=== PATIENT | male | born 1945 | race Caucasian/White ===

== ENCOUNTER 2020-06-08 16:37 | Inpatient (IN) | payer MEDICARE, BC ==
--- NOTE | 2020-06-08 17:03 | ED ---
Chest Pain HPI - General Chief Complaint: Chest Pain Stated Complaint: Chest Pain Source: patient, family Mode of arrival: wheelchair Limitations: no limitations - History of Present Illness Initial Comments: Patient is a 74-year-old male past history of coronary artery disease, hyperlipidemia, hypertension who presents to the emergency room with reported exertional dyspnea and chest pain for the past 2 months. Patient reports a history of 2 stents in his heart. Last was placed in 2014. Has not had any cardiac follow-up since. Reports that he cannot walk across a room without getting short of breath. Last episode of chest pain was a week and a half ago. Denies any current chest pain. No fevers or chills. Denies cough. No nausea or vomiting. Denies abdominal pain. No numbness, tingling, weakness or paresthesias in extremities. Patient denies headaches or visual changes. No lower externally swelling. No history of DVT or PE. No alleviating, precipitating or modifying factors - Related Data Home Medications Medication Instructions Recorded Confirmed Aspirin EC [Ecotrin] 325 mg PO DAILY 06/08/20 06/08/20 Atorvastatin [Lipitor] 40 mg PO HS 06/08/20 06/08/20 Cholecalciferol (Vitamin D3) 125 mcg PO HS 06/08/20 06/08/20 [Vitamin D3] Finasteride [Proscar] 5 mg PO HS 06/08/20 06/08/20 Lisinopril-Hctz 10-12.5 mg 1 tab PO DAILY 06/08/20 06/08/20 [Zestoretic 10-12.5] Metoprolol Tartrate [Lopressor] 25 mg PO HS 06/08/20 06/08/20 Tamsulosin HCl [Flomax] 0.4 mg PO HS 06/08/20 06/08/20 metFORMIN HCL [Glucophage] 500 mg PO DAILY 06/08/20 06/08/20 Allergies Allergy/AdvReac Type Severity Reaction Status Date / Time latex Allergy Rash/Hives Verified 06/08/20 18:43 warfarin [From Coumadin] Allergy Nausea & Verified 06/08/20 18:43 Vomiting Review of Systems ROS Statement: Those systems with pertinent positive or pertinent negative responses have been documented in the HPI. ROS Other: All systems not noted in ROS Statement are negative. EKG Findings - EKG Comments: EKG Findings:: EKG demonstrates normal sinus rhythm with a ventricular rate of 93. GA interval 192. QRS 186. QTC of 557. There is a left bundle branch block present. Negative for sgarbossa criteria Past Medical History Past Medical History: Coronary Artery Disease (CAD), Chest Pain / Angina, GERD/Reflux, Hyperlipidemia, Hypertension, Myocardial Infarction (CA), Osteoarthritis (OA) Additional Past Medical History / Comment(s): 10/17/14 Pt admitted to floor s/p ccath and stenting of his distal RCA. Other HX: generalized arthiritis. Last Myocardial Infarction Date:: 2004 History of Any Multi-Drug Resistant Organisms: None Reported Past Surgical History: Heart Catheterization With Stent, Joint Replacement, Tonsillectomy Additional Past Surgical History / Comment(s): 10/17/14 CCath with stent to distal RCA. 2004 CCath with stent. Colonoscopy and EGD both normal. 1999 Hip replacement. Past Anesthesia/Blood Transfusion Reactions: No Reported Reaction Date of Last Stent Placement:: 2003 Past Psychological History: No Psychological Hx Reported Smoking Status: Former smoker Past Alcohol Use History: None Reported Past Drug Use History: None Reported - Past Family History Mother Family Medical History: Cancer Additional Family Medical History / Comment(s): Mother at age 66 or 67yrs of breast to bone cancer. Father Family Medical History: Cancer Additional Family Medical History / Comment(s): Father at age 95yrs. He had colon cancer. 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 Pulido - admit with heparin, ASA, NPO at mightnight Chest Pain [facility] Upon arrival patient was placed into room 7. A thorough history and physical exam was performed. Peripheral IV is established. To lead EKG is performed which demonstrated a new left bundle-branch block. This is a change in comparison to his previous. Laboratory studies are obtained which demonstrated d-dimer 1.97. Troponin of 0.332 and BNP of 349. Chest x-ray demonstrates no acute intrathoracic process. CT the patient's chest was performed because of his elevated d-dimer with reported exertional dyspnea. CT demonstrates no evidence of pulmonary embolism. Mild q changes and subsegmental atelectasis. Results are discussed with the patient. He is placed on heparin as he has no contraindication. Case is discussed with Dr. Pulido who recommended aspirin. Patient will be made nothing by mouth at midnight for possible cath in the morning. Patient and his daughter at bedside agreed to treatment plan. Patient is awaiting a bed on the Disposition Clinical Impression: Chest pain, NSTEMI (non-ST elevated myocardial infarction) Disposition: ADMITTED IP TO THIS [facility] Condition: Serious Is patient prescribed a controlled substance at d/c from ED?: No Decision to Admit Reason: Admit from EC Decision Date: 06/08/20 Decision Time: 19:30
[2020-06-08 17:16] LABS: Basophils # (A) 0.1 k/uL (0-0.2); Basophils % (A) 1 %; Eosinophils # (A) 0.2 k/uL (0-0.7); Eosinophils % (A) 3 %; HCT 45.4 % (39.0-53.0); HGB 15.8 gm/dL (13.0-17.5); Lymphocytes # (A) 1.5 k/uL (1.0-4.8); Lymphocytes % (A) 22 %; MCH 33.5 pg (25.0-35.0); MCHC 34.8 g/dL (31.0-37.0); MCV 96.1 fL (80.0-100.0); Monocytes # (A) 0.5 k/uL (0-1.0); Monocytes % (A) 8 %; Neutrophils # (A) 4.5 k/uL (1.3-7.7); Neutrophils % (A) 65 %; Platelet Count 195 k/uL (150-450); RBC 4.72 m/uL (4.30-5.90); RDW 12.8 % (11.5-15.5); WBC 6.9 k/uL (3.8-10.6)
[2020-06-08 17:25] LABS: Albumin 4.1 g/dL (3.5-5.0); Calcium 9.3 mg/dL (8.4-10.2); Magnesium 1.9 mg/dL (1.6-2.3); Total Bilirubin 1.5 mg/dL (0.2-1.3); Total Protein 7.6 g/dL (6.3-8.2)
--- NOTE | 2020-06-08 17:25 | XR ---
EXAMINATION TYPE: XR chest 2V DATE OF EXAM: 06/08/2020 COMPARISON: NONE HISTORY: Difficulty breathing TECHNIQUE: 3 views FINDINGS: There is no heart failure nor confluent pneumonic infiltrate. Costophrenic angles are clear . Thoracic aorta is atheromatous. Spurring in the thoracic spine. IMPRESSION: No active cardiopulmonary disease. Normal heart.
[2020-06-08 17:34] LABS: INR 1.1 (<1.2); Partial Thromboplastin Time 23.2 sec (22.0-30.0); Prothrombin Time 11.2 sec (9.0-12.0)
[2020-06-08 17:40] LABS: D-Dimer 1.97 mg/L FEU (<0.60)
--- NOTE | 2020-06-08 19:18 | CT ---
EXAMINATION TYPE: CT chest angio for PE DATE OF EXAM: 06/08/2020 COMPARISON: None HISTORY: Dyspnea. CT DLP: 744.3 mGycm Automated exposure control for dose reduction was used. CONTRAST: Performed with IV Contrast, patient injected with 80ml mL of Isovue 370. There is no mediastinal adenopathy. Thoracic aorta is atheromatous. There is no aneurysm or dissectio n. Heart size is fairly normal. There is no pericardial effusion. There is some mild interstitial density and subsegmental atelectasis at the lung bases. There is normal contrast opacification of the pulmonary arteries. There are no filling defects. The r ibs appear intact. Thoracic spine is intact. IMPRESSION: No evidence of pulmonary embolism. Mild fibrotic changes and subsegmental atelectasis at the lung bas es. No suspicious pulmonary mass. Atherosclerotic vascular disease.
[2020-06-08] MEDS ORDERED: HEPARIN SODIUM,PORCINE 5,000 UNIT/ML 1 ML VIAL IV PRN (19:23)
[2020-06-08] MEDS ORDERED: HEPARIN SODIUM,PORCINE 5,000 UNIT/ML 1 ML VIAL IV ONE (19:23)
[2020-06-08] MEDS ORDERED: ASPIRIN 81 MG PO STA (19:26)
[2020-06-08] MEDS ORDERED: NALOXONE 0.4 MG/ML 1 ML VIAL IV PRN (19:33)
[2020-06-08] MEDS: HEPARIN SOD,PORK IN 0.45% NACL 25,000 UNIT in 0.45% NACL 1 250ML.BAG IV SCH (19:39)
[2020-06-08] MEDS: ATORVASTATIN 40 MG TAB PO SCH (21:27)
[2020-06-08 23:48] VITALS: TEMP 98
[2020-06-09 06:14] LABS: Glucose,Whole Blood 122 mg/dL (75-99)
[2020-06-09] MEDS ORDERED: ASPIRIN 325 MG TAB PO SCH (09:00)
--- NOTE | 2020-06-09 09:44 | CONS ---
CONSULTATION CHIEF COMPLAINT: Chest pain. HISTORY OF PRESENT ILLNESS: Bob is a 74-year-old gentleman with history of coronary artery disease, hypertension, diabetes, dyslipidemia, who presented to hospital complaining of exertional chest pain for about one and half months and also exertional shortness of breath. Yesterday, he had pain at rest, came to the hospital and is admitted with acute non ST-segment elevation TN. He describes his chest pain as moderate precordial chest pressure that radiates to his back. It is associated with shortness of breath. There is no definite radiation to neck, arm or back. The patient has known coronary artery disease and last had an angioplasty and stent placement in 2014. He initially had an angioplasty in the setting of an acute inferior wall myocardial infarction in 2004 and underwent angioplasty with stent placement of circumflex coronary artery. Subsequently, he had stenting of the LAD and when he was admitted in 2014 had a new lesion in the distal right coronary artery for which he underwent angioplasty with stent placement. At the time of my evaluation this morning, he is chest pain free. Coronavirus is negative. His EKG shows sinus rhythm with left bundle branch block. His troponins are elevated at 0.3, 0.3 and 0.2. His BUN is slightly elevated at 30, creatinine is 1.1. Hemoglobin is 15.8, platelet count is 195. PHYSICAL EXAMINATION: On exam, comfortable at rest. Vital signs are stable. Chest exam reveals good air entry bilaterally. Heart exam reveals first and second heart sounds and systolic murmur at the apex. Abdomen is soft. Exam of extremities did not reveal any edema. Peripheral pulses are felt. LABS: Labs are as described above. ASSESSMENT: 1. Acute non ST-segment elevation myocardial infarction in a patient with known coronary artery disease, status post multivessel angioplasty. 2. Hypertension. 3. Diabetes. 4. Dyslipidemia. PLAN: The patient is currently stable. I advised him to undergo cardiac catheterization and we will decide on further course of action based on the cath findings. MMODL / IJN: [id number] /
[2020-06-09 10:07] LABS: INR 1.2 (<1.2); Prothrombin Time 11.9 sec (9.0-12.0)
[2020-06-09] MEDS ORDERED: SODIUM CHLORIDE 0.9% 1,000 ML in EMPTY BAG 1 BAG IV ONE (10:08)
[2020-06-09] MEDS ORDERED: ALPRAZolam 0.5 MG TAB PO PRN (10:08)
[2020-06-09] MEDS ORDERED: ATORVASTATIN 80 MG TAB PO STA (10:08)
[2020-06-09] MEDS ORDERED: NITROGLYCERIN SL TABS 0.4 MG TAB SUBLINGUAL PRN (10:08)
[2020-06-09] MEDS ORDERED: ASPIRIN 325 MG TAB PO STA (10:08)
[2020-06-09] MEDS ORDERED: ALPRAZolam 0.25 MG TAB PO PRN (10:08)
[2020-06-09 10:28] LABS: Calcium 8.6 mg/dL (8.4-10.2); Potassium 3.5 mmol/L (3.5-5.1)
[2020-06-09] MEDS ORDERED: IV FLUID CONTINUATION 950 ML IV ONE (10:46)
[2020-06-09] MEDS ORDERED: MIDAZOLAM 2 MG/2 ML VIAL IV ONE (11:02)
[2020-06-09] MEDS ORDERED: LIDOCAINE 1% INJ 10MG/ML (20 ML MDV) SQ ONE (11:05)
[2020-06-09] MEDS ORDERED: DOPamine DRIP 800 MG in DEXTROSE/WATER 1 250ML.BAG IV ONE (11:43)
[2020-06-09] MEDS ORDERED: BIVALIRUDIN BOLUS 250 MG/50 ML IV ONE (11:51)
[2020-06-09] MEDS ORDERED: BIVALIRUDIN 250 MG in SODIUM CHLORIDE 0.9% 50 ML IV ONE (11:52)
--- NOTE | 2020-06-09 11:53 | P.HPIM ---
History of Present Illness H&P Date: 06/09/20 Chief Complaint: chest pain This is a 74-year-old male patient of Dr. Florence with a past medical history of coronary artery disease status post angioplasty and stent placement in 2004 and 2014, hyperlipidemia, hypertension, BPH, and diabetes mellitus type 2. Patient had complaints of exertional dyspnea for the last 2 months that has progressively been getting worse. He then started to have chest pain about a week ago that worsened with activity, patient reports he called Dr. Florence's office who instructed him to go to the emergency department. During initial workup in the emergency department EKG was performed and showed a new left bundle branch block, that was changed from his previous EKG. Labs were obtained and was found to have an elevated d-dimer of 1.97, troponin of 0.332, BNP of 349. CTA of the chest was done that showed no evidence of pulmonary embolism, mild fibrotic changes and atelectasis at the lung bases, chest x-ray showed no active cardiopulmonary disease. Covid testing was negative. Patient was placed on heparin, cardiology consulted, who plans on a cardiac catheterization today. . Review of Systems Constitutional: Reports fatigue, Denies chills, Denies fever Ears, nose, mouth and throat: Denies headache, Denies nasal congestion, Denies nasal discharge, Denies sinus pain, Denies sinus pressure Cardiovascular: Reports chest pain, Reports decreased exercise tolerance, Reports dyspnea on exertion, Reports shortness of breath, Denies edema, Denies leg edema, Denies orthopnea, Denies syncope Respiratory: Reports dyspnea, Denies congestion, Denies cough, Denies wheezing Gastrointestinal: Denies abdominal pain, Denies constipation, Denies diarrhea, Denies heartburn, Denies loss of appetite, Denies nausea, Denies vomiting Genitourinary: Denies urinary frequency, Denies urinary hesitancy, Denies urinary retention Musculoskeletal: Denies arm numbness/tingling, Denies atrophy, Denies frequent falls, Denies leg numbness/tingling, Denies muscle weakness Integumentary: Denies pruritus, Denies rash, Denies wounds Neurological: Denies confusion, Denies memory loss, Denies seizures, Denies syncope, Denies weakness, Denies visual changes Past Medical History Past Medical History: Coronary Artery Disease (CAD), Chest Pain / Angina, GERD/Reflux, Hyperlipidemia, Hypertension, Myocardial Infarction ([place]), Osteoarthritis (OA), Prostate Disorder Additional Past Medical History / Comment(s): 10/17/14 Pt admitted to floor s/p ccath and stenting of his distal RCA. Other HX: generalized arthiritis. Last Myocardial Infarction Date:: 2004 History of Any Multi-Drug Resistant Organisms: None Reported Past Surgical History: Heart Catheterization With Stent, Joint Replacement, Tonsillectomy Additional Past Surgical History / Comment(s): 10/17/14 CCath with stent to distal RCA. 2004 CCath with stent. Colonoscopy and EGD both normal. 1999 Hip replacement. Past Anesthesia/Blood Transfusion Reactions: No Reported Reaction Date of Last Stent Placement:: 2003 Past Psychological History: No Psychological Hx Reported Smoking Status: Former smoker Past Alcohol Use History: None Reported Past Drug Use History: None Reported - Past Family History Mother Family Medical History: Cancer Additional Family Medical History / Comment(s): Mother at age 66 or 67yrs of breast to bone cancer. Father Family Medical History: Cancer Additional Family Medical History / Comment(s): Father at age 95yrs. He had colon cancer. Daughter(s) Family Medical History: Cancer (breast cancer ) Additional Family Medical History / Comment(s): daughter with breast cancer Medications and Allergies Home Medications Medication Instructions Recorded Confirmed Type Aspirin EC [Ecotrin] 325 mg PO DAILY 06/08/20 06/08/20 History Atorvastatin [Lipitor] 40 mg PO HS 06/08/20 06/08/20 History Cholecalciferol (Vitamin D3) 125 mcg PO HS 06/08/20 06/08/20 History [Vitamin D3] Finasteride [Proscar] 5 mg PO HS 06/08/20 06/08/20 History Lisinopril-Hctz 10-12.5 mg 1 tab PO DAILY 06/08/20 06/08/20 History [Zestoretic 10-12.5] Metoprolol Tartrate [Lopressor] 25 mg PO HS 06/08/20 06/08/20 History Tamsulosin HCl [Flomax] 0.4 mg PO HS 06/08/20 06/08/20 History metFORMIN HCL [Glucophage] 500 mg PO DAILY 06/08/20 06/08/20 History Allergies Allergy/AdvReac Type Severity Reaction Status Date / Time latex Allergy Rash/Hives Verified 06/08/20 18:43 warfarin [From Coumadin] Allergy Nausea & Verified 06/08/20 18:43 Vomiting Physical Exam Vitals: Vital Signs Temp Pulse Pulse Resp BP BP Pulse Ox 06/09/20 08:00 98.0 F 78 14 107/67 99 06/09/20 04:00 77 18 101/60 96 06/09/20 01:48 86 18 06/08/20 23:47 98.0 F 86 18 116/66 96 06/08/20 23:25 97.8 F 80 18 127/67 94 L 06/08/20 21:41 98.9 F 06/08/20 21:30 89 16 98/61 97 06/08/20 21:00 89 16 101/88 98 06/08/20 20:00 87 16 94/57 95 06/08/20 19:30 89 16 108/64 95 06/08/20 19:00 84 18 110/64 95 06/08/20 18:59 98.5 F 84 25 H 108/64 95 06/08/20 18:35 86 24 110/64 95 06/08/20 16:59 95 24 06/08/20 16:45 98.7 F 95 20 95/67 95 Intake and Output 06/08/20 06/09/20 06/09/20 22:59 06:59 14:59 Intake Total 120 Output Total 350 Balance -230 Intake: Oral 120 Output: Urine 350 Other: # Voids 1 1 Weight 113.398 kg 115.7 kg - Constitutional General appearance: cooperative, no acute distress, obese - EENT Eyes: PERRLA, normal appearance ENT: hearing grossly normal, normal oropharynx, no pharyngeal erythema, no thrush - Neck Neck: lymphadenopathy, normal ROM, no rigidity, no stridor, no thyromegaly - Respiratory Respiratory: bilateral: CTA, negative: diminished, dullness, rales, rhonchi, w heezing - Cardiovascular Rhythm: regular Heart sounds: normal: S1, S2 - Gastrointestinal General gastrointestinal: no distended, no hepatomegaly, normal bowel sounds, no organomegaly, no soft, no tenderness - Integumentary Integumentary: normal, no rash - Neurologic Neurologic: CNII-XII intact - Musculoskeletal Musculoskeletal: generalized weakness, strength equal bilaterally, no right sided weakness, no left sided weakness - Psychiatric Psychiatric: A&O x's 3, appropriate affect, intact judgment & insight Results CBC & Chem 7: 06/08/20 16:58 06/09/20 08:56 Labs: Abnormal Lab Results - Last 24 Hours (Table) 06/08/20 06/08/20 06/08/20 Range/Units 16:58 16:58 16:58 INR (<1.2) APTT (22.0-30.0) sec D-Dimer 1.97 H (<0.60) mg/L FEU Sodium (137-145) mmol/L BUN 30 H (9-20) mg/dL Glucose 160 H (74-99) mg/dL POC Glucose (mg/dL) (75-99) mg/dL Plasma Lactic Acid Tyrese 2.2 H* (0.7-2.0) mmol/L Total Bilirubin 1.5 H (0.2-1.3) mg/dL ALT 51 H (4-49) U/L Troponin I (0.000-0.034) ng/mL 06/08/20 06/08/20 06/09/20 Range/Units 16:58 20:47 00:45 INR (<1.2) APTT 51.0 H (22.0-30.0) sec D-Dimer (<0.60) mg/L FEU Sodium (137-145) mmol/L BUN (9-20) mg/dL Glucose (74-99) mg/dL POC Glucose (mg/dL) (75-99) mg/dL Plasma Lactic Acid Tyrese (0.7-2.0) mmol/L Total Bilirubin (0.2-1.3) mg/dL ALT (4-49) U/L Troponin I 0.332 H* 0.337 H* (0.000-0.034) ng/mL 06/09/20 06/09/20 06/09/20 Range/Units 00:45 06:12 08:56 INR 1.2 H (<1.2) APTT (22.0-30.0) sec D-Dimer (<0.60) mg/L FEU Sodium (137-145) mmol/L BUN (9-20) mg/dL Glucose (74-99) mg/dL POC Glucose (mg/dL) 122 H (75-99) mg/dL Plasma Lactic Acid Tyrese (0.7-2.0) mmol/L Total Bilirubin (0.2-1.3) mg/dL ALT (4-49) U/L Troponin I 0.246 H* (0.000-0.034) ng/mL 06/09/20 Range/Units 08:56 INR (<1.2) APTT (22.0-30.0) sec D-Dimer (<0.60) mg/L FEU Sodium 136 L (137-145) mmol/L BUN 26 H (9-20) mg/dL Glucose 135 H (74-99) mg/dL POC Glucose (mg/dL) (75-99) mg/dL Plasma Lactic Acid Tyrese (0.7-2.0) mmol/L Total Bilirubin (0.2-1.3) mg/dL ALT (4-49) U/L Troponin I (0.000-0.034) ng/mL Thrombosis Risk Factor Assmnt - Choose All That Apply Any of the Below Risk Factors Present?: Yes Each Factor Represents 1 point: Abnormal pulmonary function (COPD), Obesity (BMI >25) Other Risk Factors: Yes Each Risk Factor Represents 2 Points: Age 61-74 years Other congenital or acquired thrombophilia - If yes, enter type in comment: No Thrombosis Risk Factor Assessment Total Risk Factor Score: 4 Thrombosis Risk Factor Assessment Level: Moderate Risk Assessment and Plan Plan: 1. Acute non-ST segment elevation myocardial infarction. Started on Aspirin 325 mg along with heparin infusion. Cardiology on consult and plans on cardiac catheterization today 2. Coronary arteries disease status post multivessel angioplasty. Continue on atorvastatin 40 mg and metoprolol 25 mg daily 3. Hypertension. On metoprolol 25 mg daily 4. Diabetes. On metformin 500 mg daily at home, currently on hold 5. Hyperlipidemia. Continue atorvastatin 40 mg daily 6. BPH. On Flomax 0.4 mg along with finasteride 5 mg at home. 7. DVT prophylaxis 8. GI prophylaxis The above impression and plan of care have been discussed and directed by signing physician. Carmen Rudolph nurse practitioner acting as scribe for signing physician.
[2020-06-09] MEDS ORDERED: IOPAMIDOL-370 125ML BTL INJ ONE (12:00)
[2020-06-09] MEDS ORDERED: IOPAMIDOL-370 100ML BTL INJ ONE (12:29)
[2020-06-09] MEDS ORDERED: CLOPIDOGREL 75 MG TAB PO ONE (12:31)
[2020-06-09] MEDS ORDERED: HEPARIN SOD,PORK IN 0.45% NACL 25,000 UNIT in 0.45% NACL 1 250ML.BAG IV ONE (12:39)
[2020-06-09 16:27] VITALS: PULSE 90
[2020-06-09] MEDS: SODIUM CHLORIDE 0.9% 1,000 ML IV SCH ×2 (16:28→20:27)
--- NOTE | 2020-06-09 16:31 | CC ---
CARDIAC CATHETERIZATION REPORT INDICATION: Acute cih-[id number]-elevation [place]. The patient has known CAD and has had prior angioplasty of the LAD and right coronary artery, has been lost the followup, came to hospital with exertional chest pain, shortness of breath and had mild troponin elevation. The patient was advised to undergo cardiac catheterization and was explained risks, benefits and alternatives. He understood and accepted. PROCEDURE NOTE: After obtaining informed consent, left heart catheterization and coronary angiogram were performed via the right femoral artery using standard George catheters. Patient tolerated the procedure well without any obvious immediate complications. The patient has very tortuous iliac vessels. I used a Glidewire to traverse into the abdominal aorta and exchanged the catheters in the ascending aorta using a long exchange length wire. The patient tolerated the procedure well without any obvious immediate complications. He was hypotensive prior to the procedure. I gave him a fluid bolus. FINDINGS: HEMODYNAMICS: Left ventricular end-diastolic pressure was 18 mm. There is no effective gradient across the aortic valve. LEFT VENTRICULOGRAM: Left ventriculogram was not performed. ANGIOGRAPHIC DATA: Left Main Coronary Artery: Left main coronary artery appears calcified but is free of significant stenosis. It divides into a small nondominant circumflex coronary artery and LAD. LAD was previously stented in the proximal segment. The stent appears patent. Circumflex coronary artery is a nondominant vessel. There is an 80% to 90% stenosis involving the proximal part, which is unchanged compared to the previous cardiac catheterization. RIGHT CORONARY ARTERY: Right coronary artery is a large dominant vessel that shows a long segment of 95% stenosis involving the ostium in the proximal right coronary artery. CONCLUSIONS: Patent stent within the LAD, significant disease involving circumflex coronary artery, which remains unchanged from prior cardiac catheterization, critical ostial stenosis involving the right coronary artery. PLAN: Angiographic data was reviewed by Dr. Olivia Stone, the on-call auto service station attendant. He will attempt angioplasty of the right coronary artery. The patient understands this is a high-risk angioplasty because of the heavily calcified vessel at the ostial lesion. MMODL / IJN: [id number] /
--- NOTE | 2020-06-09 16:37 | PTCA ---
PERCUTANEOUSTRANS CORORONARY ANGIOGRAPHY DATE OF SERVICE: 06/09/2020 PROCEDURE: PTCA of ostial/proximal RCA. PERFORMED BY: Dr. Olivia Stone. Moderate conscious sedation time was 48 minutes. Patient was administered Versed. Oxygen saturation, hemodynamics and EKG were monitored closely. CLINICAL INFORMATION: Mr. Bob King is a 74-year-old gentleman with a known history of CAD, hypertension and hyperlipidemia, who is very noncompliant and does not follow up on a regular basis. In 2004 he presented with acute inferior HI. I performed stenting of a nondominant circumflex. I then performed staged intervention of LAD lesion with excellent result. About 10 years later in 2014 he presented with unstable angina and at that time I performed I performed stenting of distal RCA with a large drug-eluting stent. At that time, he had a proximal lesion of 40%. LAD was patent. Circumflex was subtotally occluded. He presented to the hospital with symptoms of angina, had nonspecific intraventricular conduction delay and also troponin elevation. Cardiac cath by Dr. Palma from right femoral approach revealed that the ostial RCA has a 99% stenosis with heavy calcification. LAD was patent. Circumflex was subtotally occluded and distal RCA was widely patent at the site of previous stenting. He was advised intervention. I spoke to the patient, explained to him that the success rate is low without a Rotablator, but I thought I will try with a cutting balloon. After explaining to him the low success rate, I proceeded with the intervention. PROCEDURE NOTE: The existing 6-Romansh introducer in the right femoral artery was used to perform procedure. I used AllRight 3.5 guide catheter to cannulate the right coronary artery and a run-through wire. With this I was able to cross the right ostial lesion. The 2.0 caliber 12 mm NC Trek balloon was initially used. I then used a 2.5 and then a 3.5, 20 mm long NC Trek balloon. There was modest improvement. I then used a cutting balloon of 2.5 caliber, 10 mm length and gave multiple inflations. I then went over to a 4.0 caliber 20 mm long NC Trek balloon and gave a long inflation at 13 atmospheres. Patient did not have chest pain but there was a significant recoil with calcification. The lesion still did not open up. There was more than 60% lesion and this was therefore an unsuccessful PTCA. Patient will require a Rotablator to cut the calcium to be able to stent it with good expansion. This was explained to the patient in detail. I also gave him Angiomax bolus and infusion and 600 mg of Plavix was given. The details of the procedure, the unsuccessful nature and the need for Rotablator to be able to cut the calcium was explained to the patient as well as his [id number], Mallika. Patient's sheath was sutured and he will be sent to [facility] by [facility] today when bed is available. The patient is hemodynamically stable, not on any pressors at the time of the dictation. MMODL / IJN: [id number] /
[2020-06-09 17:22] LABS: Glucose,Whole Blood 130 mg/dL (75-99)
[2020-06-09 18:37] VITALS: BP 144/80; RESP 16
[2020-06-09] MEDS: ATORVASTATIN 40 MG TAB PO SCH (20:26)
[2020-06-09] MEDS: HEPARIN SOD,PORK IN 0.45% NACL 25,000 UNIT in 0.45% NACL 1 250ML.BAG IV SCH (20:30)
[2020-06-09] MEDS ORDERED: METOPROLOL TARTRATE 25 MG TAB PO SCH (21:00)
[2020-06-09 21:01] LABS: Glucose,Whole Blood 147 mg/dL (75-99)
--- NOTE | 2020-06-10 10:59 | ECHOF ---
Referral Reason:LV function MEASUREMENTS -------- HEIGHT: 180.3 cm WEIGHT: 115.7 kg BP: RVIDd: 2.5 cm (< 3.3) IVSd: 0.8 cm (0.6 - 1.1) LVIDd: 6.4 cm (3.9 - 5.3) LVPWd: 1.2 cm (0.6 - 1.1) IVSs: 1.0 cm LVIDs: 6.0 cm LVPWs: 1.5 cm LAESV Index (A-L): 32.23 ml/m Ao Diam: 2.8 cm (2.0 - 3.7) AV Cusp: 1.6 cm (1.5 - 2.6) LA Diam: 2.8 cm (2.7 - 3.8) MV EXCURSION: 12.148 mm (> 18.000) MV EF SLOPE: 44 mm/s (70 - 150) EPSS: 1.9 cm MV E Davy: 1.15 m/s MV DecT: 133 ms MV A Davy: 0.44 m/s MV E/A Ratio: 2.65 RAP: 5.00 mmHg RVSP: 14.84 mmHg FINDINGS -------- This was a technically adequate study. The left ventricle is moderately dilated. Left ventricular wall thickness is normal. There is sev ere global hypokinesis of LV . Overall left ventricular systolic function is severely impaired with , an EF between 20 - 25 %. Normal LAP Grade 1 Diastolic Dysfunction. The right ventricle is normal in size. LA is midly dilated 29-33ml/m2. The right atrial size is normal. The aortic valve is trileaflet and appears structurally normal. The mitral valve is normal. Moderate mitral regurgitation is present. The tricuspid valve appears structurally normal. Mild tricuspid regurgitation present. Right vent ricular systolic pressure is normal at < 35 mmHg. There is no pulmonic regurgitation present. The aortic root size is normal. IVC Not well visulized. There is no pericardial effusion. CONCLUSIONS -------- 1. The left ventricle is moderately dilated. 2. Left ventricular wall thickness is normal. 3. There is severe global hypokinesis of LV . 4. Overall left ventricular systolic function is severely impaired with, an EF between 20 - 25 %. 5. Normal LAP Grade 1 Diastolic Dysfunction. 6. LA is midly dilated 29-33ml/m2. 7. Moderate mitral regurgitation is present. 8. Mild tricuspid regurgitation present. 9. There is no pericardial effusion. [employer] OFFICIAL: Sary Sam RDCS
== END 2020-06-09 22:00 | disposition short-term general hospital (02) | DRG 251 ==
LOC: EC 16:37 → 3SCARD 19:40
PROVIDERS: ADMIT Internal Medicine Geriatric Medicine; ATTEND Internal Medicine Geriatric Medicine
PROC: 02703ZZ Dilation of Coronary Artery, One Artery, Percutaneous Approach (ICD-10-PCS; principal; 2020-06-09 09:35)
PROC: 4A023N7 Measurement of Cardiac Sampling and Pressure, Left Heart, Percutaneous Approach (ICD-10-PCS; 2020-06-09 09:35)
PROC: B2111ZZ Fluoroscopy of Multiple Coronary Arteries using Low Osmolar Contrast (ICD-10-PCS; 2020-06-09 09:35)
DX: I21.4 Non-ST elevation (NSTEMI) myocardial infarction (principal); E11.9 Type 2 diabetes mellitus without complications; E78.5 Hyperlipidemia, unspecified; I10 Essential (primary) hypertension; I25.10 Atherosclerotic heart disease of native coronary artery without angina pectoris; I44.7 Left bundle-branch block, unspecified; N40.0 Benign prostatic hyperplasia without lower urinary tract symptoms; Z20.828 Contact with and (suspected) exposure to other viral communicable diseases; Z96.649 Presence of unspecified artificial hip joint; I95.9 Hypotension, unspecified; I25.2 Old myocardial infarction; Z79.82 Long term (current) use of aspirin; Z79.84 Long term (current) use of oral hypoglycemic drugs; Z79.899 Other long term (current) drug therapy; Z80.0 Family history of malignant neoplasm of digestive organs; Z91.19 Patient's noncompliance with other medical treatment and regimen; Z80.3 Family history of malignant neoplasm of breast; Z87.891 Personal history of nicotine dependence
CPT/HCPCS: 36415; 71046; 71275; 80048; 80053; 83605; 83735; 83880; 84484; 85025; 85379; 85610; 85730; 87635; 92920; 93005; 93306; 93458; 96365; 96366; 96376; 99285